=== PATIENT | male | born 1980 | race Two or more races ===

== ENCOUNTER 2023-12-09 19:03 | Emergency (ER) | payer SELFPAY ==
[2023-12-09 19:11] VITALS: BMI 27.3
[2023-12-09] MEDS ORDERED: METOCLOPRAMIDE HCL INJECTION 10 MG/2 ML VIAL ONE (21:10)
[2023-12-09] MEDS ORDERED: KETOROLAC TROMETHAMINE 15 MG/ML VIAL ONE (21:10)
[2023-12-09 21:19] LABS: BASO % 0.9 % (0-2.0); EOS % 2.2 % (0-4.5); HEMATOCRIT 42.3 % (35.4-49); HEMOGLOBIN 14.5 GM/dL (11.7-16.9); LYMPH % 20.7 % (8-40); MCH 29.3 pg (25.7-33.7); MCHC 34.3 g/dl (32.0-35.9); MEAN CELL VOLUME 85.2 fl (80-96); MEAN PLT VOLUME 8.4 fl (7.5-11.1); MONO % 12.4 % (3.8-10.2); NEUT % 63.8 % (42.8-82.8); PLATELET COUNT 237 10^3/uL (134-434); RBC 4.96 M/mm3 (4.00-5.60); RDW 13.7 % (11.9-15.9)
[2023-12-09] MEDS: KETOROLAC TROMETHAMINE 15 MG/ML VIAL IVPUSH ONE (21:34)
[2023-12-09] MEDS: KETOROLAC TROMETHAMINE 15 MG/ML VIAL IM ONE (21:34)
[2023-12-09] MEDS: METOCLOPRAMIDE HCL INJECTION 10 MG/2 ML VIAL IVPB ONE (21:34)
[2023-12-09 21:40] LABS: CHLORIDE 107 mmol/L (98-107); POTASSIUM 3.9 mmol/L (3.5-5.1); SODIUM 139 mmol/L (136-145)
[2023-12-09 21:42] LABS: BLOOD UREA NITROGEN 21.8 mg/dL (7-18); CALCIUM 8.6 mg/dL (8.5-10.1)
[2023-12-09 21:43] LABS: ALBUMIN 3.8 g/dl (3.4-5.0); ANION GAP 4 mmol/L (4-13); CO2 27 mmol/L (21-32); GLUCOSE,RANDOM 106 mg/dL (74-106); MAGNESIUM 2.1 mg/dL (1.8-2.4)
[2023-12-09 21:46] LABS: CREATININE 0.8 mg/dL (0.55-1.3); SGOT/AST 18 U/L (15-37); SGPT/ALT 48 U/L (13-61)
[2023-12-09 21:47] LABS: BILIRUBIN,TOTAL 0.5 mg/dL (0.2-1)
[2023-12-09 21:49] LABS: ALK PHOS 91 U/L (45-117)
[2023-12-10 03:48] LABS: PH,URINE 6.5 (5.0-8.0); URINE APPEARANCE CLEAR; URINE BILIRUBIN NEGATIVE (NEGATIVE); URINE COLOR YELLOW; URINE GLUCOSE (UA) NEGATIVE (NEGATIVE); URINE KETONE NEGATIVE (NEGATIVE); URINE LEUK ESTERASE NEGATIVE (NEGATIVE); URINE NITRITE NEGATIVE (NEGATIVE); URINE PROTEIN NEGATIVE (NEGATIVE)
[2023-12-10 03:55] LABS: METHADONE, UR NEGATIVE (NEGATIVE); OPIATES, URI NEGATIVE (NEGATIVE); PHENCYCLIDINE,URINE NEGATIVE (NEGATIVE); URINE AMPHETAMINES NEGATIVE (NEGATIVE); URINE BARBITURATES NEGATIVE (NEGATIVE); URINE BENZODIAZEPINES NEGATIVE (NEGATIVE)
[2023-12-10 03:58] LABS: COCAINE, UR NEGATIVE (NEGATIVE)
[2023-12-10] MEDS ORDERED: ACETAMINOPHEN 325 MG TABLET (FP) ONE (09:03)
[2023-12-10] MEDS: ACETAMINOPHEN 325 MG TABLET (FP) PO ONE (09:04)
[2023-12-10 13:05] VITALS: BP 135/70; PULSE 64; RESP 20; TEMP 98.5
== END 2023-12-10 13:08 | disposition home or self-care (01) ==
LOC: JER 19:03
PROC: 3E033GC Introduction of Other Therapeutic Substance into Peripheral Vein, Percutaneous Approach (ICD-10-PCS; principal; 2023-12-09)
PROC: 3E033GC Introduction of Other Therapeutic Substance into Peripheral Vein, Percutaneous Approach (ICD-10-PCS; 2023-12-09)
PROC: 3E0333Z Introduction of Anti-inflammatory into Peripheral Vein, Percutaneous Approach (ICD-10-PCS; 2023-12-09)
DX: F32.A Depression, unspecified (principal); R63.0 Anorexia; R51.9 Headache, unspecified; R44.0 Auditory hallucinations; R45.89 Other symptoms and signs involving emotional state; R07.9 Chest pain, unspecified; Z20.822 Contact with and (suspected) exposure to COVID-19
CPT/HCPCS: 0241U-QW; 36415; 80053; 80307; 81003; 82140; 83735; 84439; 84443; 85025; 87086; 93005; 93010; 99284-25